=== PATIENT | male | born 1950 | race Hispanic/Latino ===

== ENCOUNTER → 2020-12-12 | Outpatient (CLI) | payer SELFPAY | END | disposition home or self-care (01) | LOC: OIH 10:05 → EDUNIT# 10:30 | PROVIDERS: ATTEND Internal Medicine Cardiovascular Disease | DX: Z13.6 Encounter for screening for cardiovascular disorders (principal) | CPT/HCPCS: 75571 ==

== ENCOUNTER → 2020-12-25 | Outpatient (CLI) | payer OTHER ==
[~2020-12-25] MED LIST: IOHEXOL-350 75 ML VIAL IV ONE
== END | disposition home or self-care (01) ==
LOC: RAH 09:11
PROVIDERS: ATTEND Internal Medicine Cardiovascular Disease
DX: I65.23 Occlusion and stenosis of bilateral carotid arteries (principal)
CPT/HCPCS: 70498; Q9967

== ENCOUNTER 2021-03-12 07:30 | Inpatient (IN) | payer OTHER ==
[2021-03-09 10:43] LABS: BASOPHILS % (AUTO) 0.5 % (0.0-5.0); EOSINOPHILS % (AUTO) 0.4 % (0.0-8.0); HEMATOCRIT 43.4 % (42-54); LYMPHOCYTES % (AUTO) 27.6 % (21.0-51.0); MEAN CORPUSCULAR HEMOGLOBIN 31.8 pg (27.0-33.0); MEAN CORPUSCULAR HGB CONC 34.3 g/dL (32.0-36.0); MEAN CORPUSCULAR VOLUME 92.5 fL (79-99); MONOCYTES % (AUTO) 10.3 % (3.0-13.0); NEUTROPHILS % (AUTO) 60.8 % (40.0-77.0); PLATELET COUNT (AUTO) 268 K/uL (130-400); RED BLOOD CELL COUNT(AUTO) 4.69 MIL/uL (4.50-6.20); RED CELL DISTRIBUTION WIDTH 12.4 % (11.0-15.5); WHITE BLOOD COUNT (AUTO) 9.2 K/uL (4.8-10.8)
[2021-03-09 10:51] LABS: CREATININE 0.8 mg/dL (0.5-1.5); POTASSIUM 4.8 mmol/L (3.5-5.1)
[2021-03-09 10:54] LABS: INR 0.97 (0.85-1.15); PROTHROMBIN TIME 10.6 SEC (9.6-11.6)
[2021-03-09 10:55] LABS: PARTIAL THROMBOPLASTIN TIME 29.9 SEC (26.3-35.5)
[2021-03-12] VITALS (15 sets, daily range): BP systolic 118–173; BP diastolic 42–75
[~2021-03-12] VITALS: Ht 172.7 cm; Wt 77.8 kg
[~2021-03-12 07:30] MED LIST changes: +AEC81 PO; +ATOR20TA65 PO; +CEFAZOLIN SODIUM 1 GM VIAL IVP SCH; +CILO50TA PO; -IOHEXOL-350 75 ML VIAL IV ONE; +LOSA100T58 PO; +SITA100T12 PO
[2021-03-12] MEDS ORDERED: 0.9%NACL 1000ML 1,000 ML IV ONE ×2 (08:36→08:56)
[2021-03-12] MEDS ORDERED: CEFAZOLIN SODIUM 1 GM VIAL ONE (09:39)
[2021-03-12] MEDS ORDERED: LIDOCAINE HCL 1% 20 ML VIAL ONE (09:39)
[2021-03-12] MEDS ORDERED: ROCURONIUM 10MG/1ML SYR 10 MG/ML ML ONE ×2 (10:12→13:08)
[2021-03-12] MEDS ORDERED: LIDOCAINE PF 100MG/5ML (2%) SYRINGE 5ML ONE (10:12)
[2021-03-12] MEDS ORDERED: FENTANYL CITRATE PF 50 MCG/1 ML 2ML VIAL ONE ×2 (10:12→14:50)
[2021-03-12] MEDS ORDERED: PROPOFOL 10 MG/ML 20ML VIAL IV ONE (10:12)
[2021-03-12] MEDS ORDERED: HEPARIN 10,000 UNIT/10ML (1,000 UNIT/ML) VIAL ONE (10:16)
[2021-03-12] MEDS ORDERED: MIDAZOLAM HCL 1 MG/ML 2ML VIAL ONE (10:25)
[2021-03-12] MEDS ORDERED: NITROGLYCERIN 50MG/D5W 250ML 1 BOT ONE (10:29)
[2021-03-12] MEDS ORDERED: SUCCINYLCHOLINE CHLORIDE 20 MG/ML 10 ML VIAL ONE (10:30)
[2021-03-12] MEDS ORDERED: LIDOCAINE HCL MPF 1% 5ML VIAL ONE (10:31)
[2021-03-12] MEDS ORDERED: PHENYLEPHRINE HCL 10 MG/ML 1ML VIAL IV ONE (10:32)
[2021-03-12 12:54] LABS: ABG BASE EXCESS -6.5 mmol/L (-2.0-3.0); ABG HCO3 18.8 mmol/L (21.0-28.0); ABG OXYGEN SATURATION 99.1 % (95.0-99.0); ABG PCO2 37 mmHg (35-48)
[2021-03-12] MEDS ORDERED: SODIUM BICARB 8.4% 50ML SYRINGE ONE (12:57)
[2021-03-12] MEDS ORDERED: LABETALOL 20MG VIAL IV ONE (13:06)
[2021-03-12] MEDS ORDERED: NEOSTIGMINE 5MG/5ML SYR IV ONE (13:09)
[2021-03-12] MEDS ORDERED: GLYCOPYRROLATE 1 MG/5 ML SYRINGE ONE (13:12)
[2021-03-12] MEDS ORDERED: PROTAMINE SULFATE 10 MG/ML 25ML VIAL IV ONE (13:48)
[2021-03-12] MEDS ORDERED: LIDOCAINE HCL-MPF 1% 2ML VIAL IV PRN ×2 (14:00)
[2021-03-12] MEDS ORDERED: GLUCAGON 1MG KIT 1 MG ML IM PRN (14:00)
[2021-03-12] MEDS ORDERED: DEXTROSE 50%-WATER 50 ML DISP.SYRIN IV PRN (14:00)
[2021-03-12] MEDS ORDERED: POTASSIUM CHLORIDE 10% ELIXIR 20 MEQ/15 ML UDCUP PO PRN (14:00)
[2021-03-12] MEDS ORDERED: ACETAMINOPHEN 325 MG TAB PO PRN (14:00)
[2021-03-12] MEDS ORDERED: TRAMADOL HCL 50 MG TABLET PO PRN ×2 (14:00)
[2021-03-12] MEDS ORDERED: KCL 20 MEQ ERTAB PO PRN (14:00)
[2021-03-12] MEDS ORDERED: POTASSIUM CHLORIDE 20MEQ/100ML 100 ML IV PRN ×2 (14:00)
[2021-03-12 14:27] LABS: ABG BASE EXCESS -3.1 mmol/L (-2.0-3.0); ABG HCO3 20.7 mmol/L (21.0-28.0); ABG PCO2 33 mmHg (35-48)
[2021-03-12 15:31] LABS: HEMATOCRIT 39.4 % (42-54); MEAN CORPUSCULAR HEMOGLOBIN 31.4 pg (27.0-33.0); MEAN CORPUSCULAR HGB CONC 34.3 g/dL (32.0-36.0); MEAN CORPUSCULAR VOLUME 91.6 fL (79-99); RED BLOOD CELL COUNT(AUTO) 4.3 MIL/uL (4.50-6.20); RED CELL DISTRIBUTION WIDTH 12.3 % (11.0-15.5)
[2021-03-12 15:43] LABS: CREATININE 0.7 mg/dL (0.5-1.5); INR 1.09 (0.85-1.15); POTASSIUM 4.2 mmol/L (3.5-5.1); PROTHROMBIN TIME 11.8 SEC (9.6-11.6)
[2021-03-12 15:45] LABS: PARTIAL THROMBOPLASTIN TIME 32.3 SEC (26.3-35.5)
[2021-03-12] MEDS: HYDRALAZINE 20MG/ML VIAL IV PRN (16:09)
[2021-03-12] MEDS: INSULIN HUMULIN R 100 UNIT/ML 3ML SQ SCH ×2 (16:30→21:00)
[2021-03-12] MEDS ORDERED: [UNRECOGNIZED DRUG - REMARK] MISC SCH (17:00)
[2021-03-12] MEDS: KETOROLAC 30MG VIAL (30MG/ML) IV SCH ×2 (17:04→23:46)
[2021-03-12] MEDS: FAMOTIDINE 20MG TAB PO SCH (20:38)
[2021-03-12] MEDS: CEFAZOLIN SODIUM 1 GM VIAL IVP SCH (20:38)
[2021-03-13] VITALS (17 sets, daily range): BP systolic 125–185; BP diastolic 43–84
[2021-03-13 04:35] LABS: HEMATOCRIT 36.2 % (42-54); MEAN CORPUSCULAR HEMOGLOBIN 31.5 pg (27.0-33.0); MEAN CORPUSCULAR HGB CONC 34.5 g/dL (32.0-36.0); MEAN CORPUSCULAR VOLUME 91.2 fL (79-99); RED BLOOD CELL COUNT(AUTO) 3.97 MIL/uL (4.50-6.20); RED CELL DISTRIBUTION WIDTH 12.7 % (11.0-15.5); WHITE BLOOD COUNT (AUTO) 10.7 K/uL (4.8-10.8)
[2021-03-13 04:45] LABS: CREATININE 0.8 mg/dL (0.5-1.5); POTASSIUM 4.2 mmol/L (3.5-5.1)
[2021-03-13] MEDS: KETOROLAC 30MG VIAL (30MG/ML) IV SCH (05:41)
[2021-03-13] MEDS: CEFAZOLIN SODIUM 1 GM VIAL IVP SCH (05:41)
[2021-03-13] MEDS: INSULIN HUMULIN R 100 UNIT/ML 3ML SQ SCH (06:00)
[2021-03-13] MEDS: FAMOTIDINE 20MG TAB PO SCH (08:47)
[2021-03-13] MEDS ORDERED: ATORVASTATIN 20 MG TABLET PO SCH (09:00)
[2021-03-13] MEDS ORDERED: CILOSTAZOL 100 MG TAB PO SCH (09:00)
[2021-03-13] MEDS ORDERED: LOSARTAN 100 MG TABLET PO SCH (09:00)
[2021-03-13] MEDS ORDERED: ASPIRIN 81 MG EC TAB PO SCH (09:00)
[2021-03-13] MEDS: HYDRALAZINE 20MG/ML VIAL IV PRN (09:24)
== END 2021-03-13 11:45 | disposition home or self-care (01) | DRG 39 ==
LOC: DAHIP 07:30 → 2CH 14:40
PROVIDERS: ADMIT Thoracic Surgery (Cardiothoracic Vascular Surgery); ATTEND Thoracic Surgery (Cardiothoracic Vascular Surgery)
PROC: 03CK0ZZ Extirpation of Matter from Right Internal Carotid Artery, Open Approach (ICD-10-PCS; principal; 2021-03-12 12:02)
DX: I65.21 Occlusion and stenosis of right carotid artery (principal); I10 Essential (primary) hypertension; E78.00 Pure hypercholesterolemia, unspecified; Z20.822 Contact with and (suspected) exposure to COVID-19; E78.5 Hyperlipidemia, unspecified; I25.10 Atherosclerotic heart disease of native coronary artery without angina pectoris; E11.51 Type 2 diabetes mellitus with diabetic peripheral angiopathy without gangrene; Z79.899 Other long term (current) drug therapy
CPT/HCPCS: 36415; 80048; 82435; 82803; 82947; 82948; 83605; 84132; 84295; 85018; 85025; 85027; 85610; 85730; 86850; 86900; 86901; 86923; 87635; 93005; A4344; G0378; J0330; J0360; J0690; J1644; J1885; J2001; J2250; J2370; J2704; J2710; J2720; J3010; J3490; J7030

== ENCOUNTER → 2023-01-21 | Outpatient (CLI) | payer OTHER ==
[~2023-01-21] MED LIST changes: -CEFAZOLIN SODIUM 1 GM VIAL IVP SCH; -CILO50TA PO; +CILO50TA2 PO; -LOSA100T58 PO; +LOSA100T59 PO
== END | disposition home or self-care (01) ==
LOC: RAH 13:01
PROVIDERS: ATTEND Internal Medicine Cardiovascular Disease
DX: I65.23 Occlusion and stenosis of bilateral carotid arteries (principal); I25.10 Atherosclerotic heart disease of native coronary artery without angina pectoris; I10 Essential (primary) hypertension; E78.5 Hyperlipidemia, unspecified; E11.51 Type 2 diabetes mellitus with diabetic peripheral angiopathy without gangrene; I70.213 Atherosclerosis of native arteries of extremities with intermittent claudication, bilateral legs; Z79.82 Long term (current) use of aspirin; Z79.899 Other long term (current) drug therapy
CPT/HCPCS: 93880